=== PATIENT | female | born 1950 | race American Indian/Alaskan Native ===

== ENCOUNTER 2020-11-19 17:01 | Emergency (ER) | payer SELFPAY ==
--- NOTE | 2020-11-19 18:40 | XRay Report ---
RIGHT ELBOW 4 VIEW(S) INDICATION / CLINICAL INFORMATION: Elbow deformity COMPARISON: None available. FINDINGS: BONES / JOINT(S): The radius and ulna are dislocated posteriorly with respect to the humerus. Postred uction radiographs recommended. No fracture visualized. No significant arthritis. SOFT TISSUES: No significant abnormality. ADDITIONAL FINDINGS: None. Signer Name: Jesus Alberto Powell MD Signed: 11/19/2020 6:35 PM Workstation Name: [id number]
--- NOTE | 2020-11-19 20:32 | Emergency Department Report ---
HPI - General Chief Complaint: Extremity Injury, Upper Time Seen by Provider: 11/19/20 20:24 - HPI HPI: Room 45 The patient is a 70-year-old female present with a chief complaint of right elbow pain. The patient states this afternoon at approximate 14:30 she slipped in some mud and fell on outstretched hand. Patient complains of pain in the right elbow only when she moves it. Patient denies loss of consciousness ED Past Medical Hx - Past Medical History Previous Medical History?: No - Surgical History Past Surgical History?: No - Family History Family history: no significant - Social History Smoking Status: Never Smoker Substance Use Type: None - Medications Home Medications: Home Medications Medication Instructions Recorded Confirmed Last Taken Type Cyclobenzaprine [Flexeril] 10 mg PO TID PRN #10 tablet 11/19/20 Unknown Rx HYDROcodone/APAP 5-325 [[place] 1 - 2 each PO Q6HR PRN #20 tablet 11/19/20 Unknown Rx 5/325] Ibuprofen [Motrin 800 MG tab] 800 mg PO Q8HR PRN #20 tablet 11/19/20 Unknown Rx ED Review of Systems ROS: Stated complaint: FALL;ELBOW INJURY Other details as noted in HPI Constitutional: no symptoms reported Eyes: denies: eye pain ENT: denies: throat pain Respiratory: no symptoms reported Cardiovascular: denies: chest pain Endocrine: no symptoms reported Gastrointestinal: denies: abdominal pain Musculoskeletal: arthralgia Neurological: denies: headache Physical Exam - Physical Exam Vital Signs: Vital Signs 11/19/20 17:49 Temperature 98.0 F Pulse Rate 89 Respiratory 16 Rate Blood Pressure 176/84 [Left] O2 Sat by Pulse 99 Oximetry Physical Exam: GENERAL: The patient is well-developed well-nourished female sitting in chair not appearing to be in acute distress HEENT: Normocephalic. Atraumatic. Extraocular motions are intact. Patient has moist mucous membranes. NECK: Supple. Trachea midline CHEST/LUNGS: There is no respiratory distress noted. HEART/CARDIOVASCULAR: Regular. There is no tachycardia. 2+ right DP SKIN: There is no rash. There is no edema. There is no diaphoresis. No lacerations appreciated NEURO: The patient is awake, alert, and oriented. The patient is cooperative. The patient has no focal neurologic deficits. The patient has normal speech. Normal motor function of right hand. Normal sensation to light touch MUSCULOSKELETAL: There is deformity of the right elbow ED Course Vital Signs 11/19/20 17:49 Temperature 98.0 F Pulse Rate 89 Respiratory 16 Rate Blood Pressure 176/84 [Left] O2 Sat by Pulse 99 Oximetry - Moderate Sedation Indications: fracture/dislocation redu ASA Class: I Mallampati Airway Score: 1 Time of Last PO Intake: 13:00 Preparation: telemetry monitor applied, pulse oximeter, capnometry used, supplemental O2 applied, suction/airway equipment at bedside, IV secured IV Etomidate Dose (mgs): 8 Complications: none Patient Tolerated Procedure: well, no complications - Orthopedic Joint Reduction Joint #1 Consent Obtained: verbal consent, written consent Time Out Performed: Yes Side: right Joint Reduction Location: elbow Analgesia: moderate sedation Shoulder Technique Used (if applicable): traction/counter-traction Technique Used: traction/counter-traction Post-Reduction Neuro Exam: intact Post-Reduction Vascular Exam: intact Post Reduction X-Ray Obtained: Yes Post Reduction X-Ray Results: reduced Splint Applied: Yes Patient Tolerated Procedure: well ED Medical Decision Making - Radiology Data Radiology results: report reviewed (Right elbow x-ray #1), image reviewed (Right elbow x-ray #1, right elbow x-ray #2) interpreted by me: Right elbow x-ray #1-positive dislocation. No fracture seen. No foreign body seen Right elbow x-ray #2-reduced. Bone fragment visualized Findings [facility] [address] [place] [address] XRay Report Signed Patient: DIONNE GASPAR MR#: [id number] 7 : 1950 Acct:[id number] Age/Sex: 70 / F ADM Date: 11/19/20 Loc: ED Attending Dr: Ordering Physician: JACQUIE GRIMES MD Date of Service: 11/19/20 Procedure(s): XR elbow 3+V RT Accession Number(s): [id number] cc: ED MD CORNELIO Fluoro Time In Minutes: RIGHT ELBOW 4 VIEW(S) INDICATION / CLINICAL INFORMATION: Elbow deformity COMPARISON: None available. FINDINGS: BONES / JOINT(S): The radius and ulna are dislocated posteriorly with respect to the humerus. Postreduction radiographs recommended. No fracture visualized. No significant arthritis. SOFT TISSUES: No significant abnormality. ADDITIONAL FINDINGS: None. Signer Name: Jesus Alberto Powell MD Signed: 11/19/2020 6:35 PM Workstation Name: [id number] Transcribed By: TL Dictated By: Jesus Alberto Powell MD Electronically Authenticated By: Jesus Alberto Powell MD Signed Date/Time: 11/19/201834 DD/ 33 TD/TT: [facility] [address] [place] [address] XRay Report Signed Patient: DIONNE GASPAR MR#: [id number] 7 : 1950 Acct:[id number] Age/Sex: 70 / F ADM Date: 11/19/20 Loc: ED Attending Dr: Ordering Physician: JENNIFER QUINONES MD Date of Service: 11/19/20 Procedure(s): XR elbow 1V RT Accession Number(s): [id number] cc: JENNIFER QUINONES MD Fluoro Time In Minutes: RIGHT ELBOW ONE VIEW INDICATION / CLINICAL INFORMATION: Post reduction COMPARISON: 11/19/2020, 1824 hours FINDINGS: BONES / JOINT(S): There is been successful reduction of the dislocated elbow joint. There is a fracture of the proximal radial head with a fragment which projects anterior to the radial head. SOFT TISSUES: There is soft tissue swelling ADDITIONAL FINDINGS: None. Signer Name: Kirit Baxter MD Signed: 11/19/2020 11:10 PM Workstation Name: [id number] Transcribed By: SS Dictated By: Kirit Baxter MD Electronically Authenticated By: Kirit Baxter MD Signed Date/Time: 11/19/202309 DD/ 08 TD/TT: - Differential Diagnosis Elbow dislocation Critical care attestation.: If time is entered above; I have spent that time in minutes in the direct care of this critically ill patient, excluding procedure time. ED Disposition Clinical Impression: Dislocation of right elbow, Right radial head fracture Disposition: DC-01 TO HOME OR SELFCARE Is pt being admited?: No Does the pt Need Aspirin: No Condition: Stable Instructions: Elbow Dislocation, [id number], Cast or Splint Care, Adult, Elbow Dislocation Additional Instructions: Return to the emergency department should you develop worsening symptoms, jailene bility to tolerate food or liquids, high fever or any other concerns Prescriptions: Cyclobenzaprine [Flexeril] 10 mg PO TID PRN #10 tablet PRN Reason: Muscle Spasm Ibuprofen [Motrin 800 MG tab] 800 mg PO Q8HR PRN #20 tablet PRN Reason: Pain, Moderate (4-6) HYDROcodone/APAP 5-325 [[place] 5/325] 1 - 2 each PO Q6HR PRN #20 tablet PRN Reason: Pain Referrals: PAVEL TA MD [Staff Physician] - 3-5 Days (Dr. Ta is an orthopedic surgeon. Please follow-up with him or another orthopedic surgeon for further evaluation) Time of Disposition: 23:18
[2020-11-19] MEDS ORDERED: ETOMIDATE 20 MG/10 ML INJ IV ONE (20:49)
--- NOTE | 2020-11-19 23:14 | XRay Report ---
RIGHT ELBOW ONE VIEW INDICATION / CLINICAL INFORMATION: Post reduction COMPARISON: 11/19/2020, 1824 hours FINDINGS: BONES / JOINT(S): There is been successful reduction of the dislocated elbow joint. There is a fractu re of the proximal radial head with a fragment which projects anterior to the radial head. SOFT TISSUES: There is soft tissue swelling ADDITIONAL FINDINGS: None. Signer Name: Kirit Baxter MD Signed: 11/19/2020 11:10 PM Workstation Name: [id number]
[2020-11-19 23:46] VITALS: BP 154/83
== END 2020-11-20 00:15 | disposition home or self-care (01) ==
LOC: ED 17:01
DX: S52.121A Displaced fracture of head of right radius, initial encounter for closed fracture (principal); S53.104A Unspecified dislocation of right ulnohumeral joint, initial encounter; Z79.899 Other long term (current) drug therapy; W01.0XXA Fall on same level from slipping, tripping and stumbling without subsequent striking against object, initial encounter; Y93.89 Activity, other specified; Y92.89 Other specified places as the place of occurrence of the external cause; Y99.8 Other external cause status
CPT/HCPCS: 96374